=== PATIENT | male | born 1940 | race Caucasian/White ===

== ENCOUNTER 2017-03-01 08:28 | Emergency (ER) | payer MEDICARE, OTHER ==
[~2017-03-01 08:28] MED LIST: ALEVE220 MG PO; ASPIRIN325 M3 PO; CELEBREX200 MG; LOVENOX40 MG/0.4 SQ; NEURONTIN100 MG; NEURONTIN600 M1 PO; PERCOCET 5/3251 TAB PO
[2017-03-01] MEDS ORDERED: LOVENOX150 MG/1 M SC (08:49)
[2017-03-01] MEDS ORDERED: NAPROXEN500 M1 PO (09:19)
[2017-03-01] MEDS ORDERED: LASIX40 M1 PO (09:19)
[2017-03-01 09:23] LABS: BASO % 0.4 % (0-2); EOS % 3.4 % (0-7); EOSINOPHIL ABSOLUTE COUNT 0.3 tho/cmm (0.0-0.7); HCT-HEMATOCRIT 48.6 % (36.0-53.5); HGB-HEMOGLOBIN 16.8 gm/dl (13.5-17.0); IMMATURE GRANULOCYTES ABSOLUTE 0.02 tho/cmm (0-0.03); IMMATURE GRANULOCYTES PERCENT 0.2 % (0-0.3); INR 1.2 INR (0.9-1.1); LYMPH % 13.5 % (20-45); LYMPH ABSOLUTE COUNT 1.1 tho/cmm (0.8-4.5); MCH (MEAN CORPUSCULAR HGB) 34.1 pg (28.0-32.0); MCHC MEAN CORPUSCULAR HGB CONC 34.6 % (32.0-36.0); MCV (MEAN CELL VOLUME) 98.6 fl (82.0-96.0); MEAN PLATELET VOLUME 10.8 cmc (9.4-12.4); MONO % 6.7 % (0-12); MONOCYTE ABSOLUTE COUNT 0.6 tho/cmm (0.0-1.2); NEUTROPHIL ABSOLUTE COUNT 6.2 tho/cmm (1.6-8.0); NEUTROPHIL-AUTOMATED 6.2 tho/cmm (1.6-8.0); NEUTROPHILS % 75.8 % (40-80); PLATELET COUNT 225 tho/cmm (150-450); PROTHROMBIN TIME 13.6 SECONDS (9.0-13.6); RED BLOOD COUNT 4.93 mil/cmm (4.40-5.70); RED CELL DISTRIBUTION WIDTH 13.9 % (12.4-16.4); WHITE BLOOD COUNT 8.2 tho/cmm (4.0-10.0)
[2017-03-01 09:35] LABS: ALB/GLOB RATIO 0.7 (0.8-2.0); ALBUMIN 3.3 g/dl (3.5-5.0); ALKALINE PHOSPHATASE 64 U/L (33-138); ALT/SGPT 26 U/L (12-78); BILIRUBIN,TOTAL 1.2 mg/dl (0.0-1.5); BLOOD UREA NITROGEN 18 mg/dl (6-24); CALCIUM 9.1 mg/dl (8.5-10.5); CARBON DIOXIDE-VENOUS 32 mmol/L (22-32); CHLORIDE 100 mmol/l (96-110); CREATININE 0.99 mg/dl (0.60-1.30); GLUCOSE 137 mg/dL (70-110); SODIUM 138 mmol/L (135-145); eGFR VALUE FOR BLACK 84 mL/Min
[2017-03-01 09:37] LABS: ANION GAP 10 mmol/L (0-20); AST/SGOT 27 U/L (10-40); POTASSIUM 4.4 mmol/L (3.7-5.1)
[2017-03-01] MEDS ORDERED: NORCO 5-325 TA1 EACH PO (11:06)
== END 2017-03-01 11:31 ==
LOC: EDMED 08:28
PROVIDERS: Emergency Medicine
DX: I82.811 Embolism and thrombosis of superficial veins of right lower extremity (principal); K20.9 Esophagitis, unspecified; E66.01 Morbid (severe) obesity due to excess calories; I10 Essential (primary) hypertension; Z90.89 Acquired absence of other organs; Z79.82 Long term (current) use of aspirin; Z79.899 Other long term (current) drug therapy
CPT/HCPCS: J2270; Q9967